=== PATIENT | female | born 1985 | race Caucasian/White ===

== ENCOUNTER 2021-12-19 07:30 | Inpatient (IN) | payer OTHER ==
[2021-12-22 06:30] VITALS: BMI 25.0
[2021-12-22] MEDS ORDERED: NS w/ Oxytocin 30 units 500 ML ONE (07:03)
[2021-12-22] MEDS ORDERED: Lactated Ringer's 1,000 ML IV SCH (07:16)
[2021-12-22] MEDS ORDERED: HYDROcodone/Acetaminophen 5/325 mg Tablet PO PRN ×4 (07:16→23:20)
[2021-12-22] MEDS ORDERED: hydrALAZINE 20 MG/ML VIAL SLOW IVP PRN ×2 (07:16→23:20)
[2021-12-22] MEDS ORDERED: Lidocaine 1% (PF) 30 ML VIAL SC PRN (07:16)
[2021-12-22] MEDS ORDERED: Docusate 100 MG CAP PO PRN (07:16)
[2021-12-22] MEDS ORDERED: Acetaminophen 500 MG TAB PO PRN (07:16)
[2021-12-22] MEDS ORDERED: Butorphanol Tartrate 1 MG/ML VIAL SLOW IVP PRN (07:16)
[2021-12-22] MEDS ORDERED: NS w/ Oxytocin 30 units 500 ML IV SCH ×2 (07:16)
[2021-12-22] MEDS ORDERED: Diphenoxylate HCl/Atropine Tablet PO PRN ×2 (07:16)
[2021-12-22] MEDS ORDERED: Ibuprofen 800 MG TAB PO PRN (07:16)
[2021-12-22] MEDS ORDERED: Misoprostol 200 MCG TAB PR PRN (07:16)
[2021-12-22] MEDS ORDERED: Promethazine HCl 25 MG/ML VIAL IM PRN (07:16)
[2021-12-22] MEDS ORDERED: Ondansetron PF 4 MG/2 ML Vial IVP PRN ×2 (07:16→23:20)
[2021-12-22 07:44] LABS: Hemoglobin 11.4 g/dL (12.0-15.5); Mean Corpuscular HGB CONC 33.5 g/dL (32.0-36.0); Mean Corpuscular Hemoglobin 30.2 pg (27.0-33.0); Mean Corpuscular Volume 90.2 fl (81.6-98.3); Mean Platelet Volume 9.7 fl (7.4-10.4); Platelet Count 221 10x3/uL (150-450); RBC Distribution Width 13.2 % (11.5-14.5); Red Blood Cell (RBC) Count 3.77 10x6/uL (3.90-5.03); White Blood Cell (WBC) Count 6.2 10x3/uL (3.5-10.5)
[2021-12-22 08:41] LABS: Syphilis Antibody Nonreactive (Nonreactive); Syphilis Antibody Index 0.03 S/CO (<1.00 Non-Reactive)
[2021-12-22 08:42] LABS: HIV (1/2) Antibody/Antigen Non-Reactive (NonReactive); HIV 1/2 INDEX 0.07 S/CO (<1.00); Hep B Surf Ag Non-Reactive S/CO (NonReactive)
[2021-12-22 08:55] LABS: HBSAg Index 0.14 S/CO (0-0.99)
[2021-12-22] MEDS ORDERED: Fentanyl 2 mcg/Bup 0.1% Cadd 100 ML ONE ×2 (10:03→17:43)
[2021-12-22] MEDS ORDERED: Misoprostol 200 MCG TAB ONE (17:13)
[2021-12-22] MEDS ORDERED: Lidocaine 1% (PF) 30 ML VIAL ONE (17:13)
[2021-12-22] MEDS ORDERED: Carboprost 250 MCG/ML AMP ONE (17:13)
[2021-12-22] MEDS ORDERED: Methylergonovine 0.2 MG/ML VIAL ONE (17:14)
[2021-12-22] MEDS ORDERED: Bisacodyl 10 MG SUPP PR PRN (23:20)
[2021-12-22] MEDS ORDERED: Preparation H Ointment 28 GM TUBE PR PRN (23:20)
[2021-12-22] MEDS ORDERED: diphenhydrAMINE 25 MG CAP PO PRN (23:20)
[2021-12-22] MEDS ORDERED: Boostrix 0.5 ML (Tdap) VIAL IM ONE (23:20)
[2021-12-22] MEDS ORDERED: Lanolin Ointment 7 GM TUBE TOP PRN (23:20)
[2021-12-22] MEDS ORDERED: Zolpidem Tartrate 5 MG TAB PO PRN (23:20)
[2021-12-22] MEDS ORDERED: Milk Of Magnesia 30 ML UDCUP PO PRN (23:20)
[2021-12-22] MEDS ORDERED: Benzocaine-Menthol 82.5 ML CAN TOP PRN (23:20)
[2021-12-22] MEDS ORDERED: Witch Hazel-Glycerin 1 EACH JAR TOP PRN (23:21)
[2021-12-23] MEDS ORDERED: NS w/ Oxytocin 30 units 500 ML IV SCH (01:00)
[2021-12-23] MEDS: Ibuprofen 800 MG TAB PO SCH ×2 (01:47→09:08)
[2021-12-23 04:29] LABS: Mean Corpuscular HGB CONC 33.9 g/dL (32.0-36.0); Mean Corpuscular Hemoglobin 30.3 pg (27.0-33.0); Mean Corpuscular Volume 89.4 fl (81.6-98.3); Mean Platelet Volume 9.7 fl (7.4-10.4); Platelet Count 187 10x3/uL (150-450); RBC Distribution Width 13.3 % (11.5-14.5)
[2021-12-23] MEDS: Ferrous Sulfate 325 MG TAB PO SCH ×2 (07:33→16:54)
[2021-12-23] MEDS: Docusate 100 MG CAP PO SCH ×2 (09:09→21:18)
[2021-12-23] MEDS: Prenatal Vitamin 1 TAB PO SCH (09:09)
[2021-12-24] MEDS: Ibuprofen 800 MG TAB PO SCH ×2 (05:14→08:24)
[2021-12-24] MEDS: Ferrous Sulfate 325 MG TAB PO SCH (07:24)
[2021-12-24] MEDS: Prenatal Vitamin 1 TAB PO SCH (08:24)
[2021-12-24] MEDS: Docusate 100 MG CAP PO SCH (08:24)
[2021-12-24 08:30] VITALS: BP 112/58; TEMP 98.4
== END 2021-12-24 12:20 | disposition home or self-care (01) | DRG 807 ==
LOC: CSHLD 12-22 06:04 → CSHPP 12-23 02:16
PROVIDERS: ADMIT Obstetrics & Gynecology; ATTEND Obstetrics & Gynecology
PROC: 10E0XZZ Delivery of Products of Conception, External Approach (ICD-10-PCS; principal; 2021-12-22)
PROC: 3E033VJ Introduction of Other Hormone into Peripheral Vein, Percutaneous Approach (ICD-10-PCS; 2021-12-22)
PROC: 10907ZC Drainage of Amniotic Fluid, Therapeutic from Products of Conception, Via Natural or Artificial Opening (ICD-10-PCS; 2021-12-22)
DX: O80 Encounter for full-term uncomplicated delivery (principal); Z37.0 Single live birth; Z3A.39 39 weeks gestation of pregnancy; Z87.440 Personal history of urinary (tract) infections
CPT/HCPCS: 36415; 85027; 86780; 86850; 86900; 86901; 87340; 87389; J2590

== ENCOUNTER 2022-10-09 11:18 | Day surgery (SDC) | payer OTHER, SELFPAY ==
[2022-10-09] MEDS ORDERED: PROPOFOL 20 ML ONE (11:31)
[2022-10-09] MEDS ORDERED: Midazolam HCl 2 mg/2 ml Vial ONE (11:31)
[2022-10-09] MEDS ORDERED: Dexamethasone 20 MG/5 ML VIAL ONE (11:32)
[2022-10-09] MEDS ORDERED: Lidocaine 1% PF 5 ML VIAL ONE (11:32)
[2022-10-09] MEDS ORDERED: Fentanyl 100 MCG/2 ML VIAL ONE ×2 (11:32→13:37)
[2022-10-09] MEDS ORDERED: Ondansetron PF 4 MG/2 ML Vial ONE (11:32)
[2022-10-09] MEDS ORDERED: Ketorolac Tromethamine 30 MG/ML VIAL ONE (11:32)
[2022-10-09] MEDS ORDERED: Rocuronium Bromide 10 MG/ML (10ML VIAL) ONE (11:32)
[2022-10-09] MEDS ORDERED: CEFAZOLIN 2 GM VIAL ONE (11:52)
[2022-10-09 12:23] VITALS: BMI 24.6
[2022-10-09 12:26] LABS: Platelet Count 225 10x3/uL (150-450)
[2022-10-09 14:58] LABS: Hemoglobin 8.7 g/dL (12.0-15.5)
== END 2022-10-09 15:25 | disposition home or self-care (01) ==
LOC: CSHSDC/OP 11:18
PROVIDERS: ATTEND Obstetrics & Gynecology
PROC: 0UQGXZZ Repair Vagina, External Approach (ICD-10-PCS; principal; 2022-10-09)
DX: S31.41XA Laceration without foreign body of vagina and vulva, initial encounter (principal); N93.0 Postcoital and contact bleeding; D64.9 Anemia, unspecified; Z87.440 Personal history of urinary (tract) infections; X58.XXXA Exposure to other specified factors, initial encounter
CPT/HCPCS: 36415; 85014; 85018; 85049; 86850; 86900; 86901; J1100; J1885; J2250; J2405; J2704; J3010

== ENCOUNTER 2025-05-14 04:04 | Inpatient (IN) | payer OTHER ==
[2025-05-14 04:19] VITALS: BMI 26.8
[2025-05-14] MEDS ORDERED: Lidocaine 1% (PF) 30 ML VIAL SC PRN (04:30)
[2025-05-14] MEDS ORDERED: Oxytocin 30 units/NS 500 ML 500 ML IV SCH ×2 (04:30→18:36)
[2025-05-14] MEDS ORDERED: hydrALAZINE 20 MG/ML VIAL SLOW IVP PRN ×2 (04:30→18:36)
[2025-05-14] MEDS ORDERED: Ibuprofen 800 MG TAB PO PRN (04:31)
[2025-05-14] MEDS ORDERED: Diphenoxylate HCl/Atropine Tablet PO PRN ×2 (04:31)
[2025-05-14] MEDS ORDERED: Methylergonovine 0.2 MG/ML VIAL IM PRN (04:31)
[2025-05-14] MEDS ORDERED: Carboprost 250 MCG/ML AMP IM PRN (04:31)
[2025-05-14] MEDS ORDERED: Acetaminophen 500 MG TAB PO PRN (04:31)
[2025-05-14] MEDS ORDERED: Tranexamic Acid 1,000 MG/10 ML VIAL IVP PRN (04:31)
[2025-05-14 04:49] LABS: Hematocrit 38.5 % (34.9-44.5); Hemoglobin 13.1 g/dL (12.0-15.5); Mean Corpuscular Hemoglobin 29.8 pg (27.0-33.0); Mean Corpuscular Volume 87.7 fL (81.6-98.3); Platelet Count 240 10x3/uL (150-450); Red Blood Cell (RBC) Count 4.39 10x6/uL (3.90-5.03); White Blood Cell (WBC) Count 9.50 10x3/uL (3.5-10.5)
[2025-05-14 05:26] LABS: Syphilis Antibody Index 0.07 S/CO (<1.00 Non-Reactive)
[2025-05-14] MEDS: fentaNYL/Ropivacaine Epidural 100 ML ONE (05:29)
[2025-05-14] MEDS ORDERED: Ondansetron PF 4 MG/2 ML Vial IVP PRN ×2 (05:39→18:36)
[2025-05-14] MEDS ORDERED: Acetaminophen 325 MG TAB PO PRN (05:39)
[2025-05-14] MEDS ORDERED: diphenhydrAMINE 50 MG/ML VIAL IVP PRN (05:39)
[2025-05-14 05:42] LABS: Hep B Surf Ag - L&D Non-Reactive S/CO (NonReactive)
[2025-05-14] MEDS ORDERED: Communication Order-Pharmacy FS SCH (05:45)
[2025-05-14] MEDS: Ondansetron PF 4 MG/2 ML Vial IVP PRN (08:34)
[2025-05-14] MEDS: Oxytocin 30 units/NS 500 ML 500 ML IV SCH (13:09)
[2025-05-14] MEDS ORDERED: Bupivacaine 0.25% HCL 30 ML VIAL ONE (14:02)
[2025-05-14] MEDS ORDERED: Bupivacaine/Epinephrine 0.25% 30 ML VIAL ONE (14:02)
[2025-05-14] MEDS: fentaNYL 2 mcg/Ropivacaine 0.2% Epidural 100 ML CADD EPIDURAL SCH (14:43)
[2025-05-14 15:50] LABS: Analyzer IN Cardio CS NICU; Critical Notified By: RRT Seaholm; RapidComm Collect By RN; pH (Cord, venous) 7.276 (7.250-7.350)
[2025-05-14 15:51] LABS: Analyzer IN Cardio CS NICU; Critical Notified By: RRT Seaholm; RapidComm Collect By RN
[2025-05-14] MEDS ORDERED: HYDROcodone/Acetaminophen 5/325 mg Tablet PO PRN ×2 (18:36)
[2025-05-14] MEDS ORDERED: Milk Of Magnesia 30 ML UDCUP PO PRN (18:36)
[2025-05-14] MEDS ORDERED: Bisacodyl 10 MG SUPP PR PRN (18:36)
[2025-05-14] MEDS ORDERED: Benzocaine-Menthol 82.5 ML CAN TOP PRN (18:36)
[2025-05-14] MEDS ORDERED: Boostrix 0.5 ML (Tdap) VIAL (>/=7 yrs of age) IM ONE (18:36)
[2025-05-14] MEDS ORDERED: Lanolin Ointment 7 GM TUBE TOP PRN (18:36)
[2025-05-14 18:38] LABS: Hematocrit 34.2 % (34.9-44.5); Hemoglobin 11.6 g/dL (12.0-15.5)
[2025-05-14] MEDS: Ibuprofen 800 MG TAB PO SCH (21:04)
[2025-05-14] MEDS: Ferrous Sulfate 325 MG TAB PO SCH (22:39)
[2025-05-15] MEDS ORDERED: Ferrous Sulfate 325 MG TAB PO SCH (08:00)
[2025-05-15 17:20] VITALS: BP 132/70; TEMP 98.3
== END 2025-05-15 18:20 | disposition home or self-care (01) | DRG 798 ==
LOC: CSHLD/OP 04:04 → CSHLD 05:54 → CSHPP 18:15
PROVIDERS: ADMIT Obstetrics & Gynecology; ATTEND Obstetrics & Gynecology
PROC: 10E0XZZ Delivery of Products of Conception, External Approach (ICD-10-PCS; principal; 2025-05-14)
PROC: 10D17ZZ Extraction of Products of Conception, Retained, Via Natural or Artificial Opening (ICD-10-PCS; 2025-05-14)
DX: O48.0 Post-term pregnancy (principal); Z37.0 Single live birth; Z3A.40 40 weeks gestation of pregnancy; O99.02 Anemia complicating childbirth; D64.9 Anemia, unspecified; O73.0 Retained placenta without hemorrhage
CPT/HCPCS: 36415; 51701; 51702; 82805; 85027; 86780; 86850; 86900; 86901; 87340; 99285; J0665; J2405; J2590; J7120